=== PATIENT | female | born 1960 | race Caucasian/White ===

== ENCOUNTER 2018-08-16 14:45 | Emergency (ER) | payer MEDICAID ==
[~2018-08-16] VITALS: Ht 162.6 cm; Wt 75.0 kg
[~2018-08-16 14:45] MED LIST: ASPI81TA52 PO; LEVO50TA8 PO; NEBI2.5T3 PO; NITRO TD; PRED20TA PO; RED600TA PO
[2018-08-16 15:21] VITALS: BP 155/88
== END 2018-08-16 17:34 | disposition home or self-care (01) ==
LOC: ER 14:46
DX: S80.11XA Contusion of right lower leg, initial encounter (principal); E78.00 Pure hypercholesterolemia, unspecified; E03.9 Hypothyroidism, unspecified; Z91.013 Allergy to seafood; Z79.82 Long term (current) use of aspirin; Z79.899 Other long term (current) drug therapy; W08.XXXA Fall from other furniture, initial encounter; Y93.89 Activity, other specified; Y92.89 Other specified places as the place of occurrence of the external cause; Y99.9 Unspecified external cause status
CPT/HCPCS: 93971; 99284

== ENCOUNTER 2020-03-12 13:58 | Outpatient (CLI) | payer BC | END 2020-03-12 23:59 | disposition home or self-care (01) | LOC: RAD 13:58 | PROVIDERS: ATTEND Physician Assistant | DX: R68.89 Other general symptoms and signs (principal); R05 Cough; R91.8 Other nonspecific abnormal finding of lung field | CPT/HCPCS: 74230 ==